=== PATIENT | male | born 2000 | race African-American/Black ===

== ENCOUNTER 2021-09-20 21:35 | Emergency (ER) | payer SELFPAY ==
[~2021-09-20] VITALS: Ht 172.7 cm; Wt 112.9 kg
[2021-09-20 21:48] VITALS: BP 161/93
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
== END 2021-09-20 22:07 ==
LOC: ER 21:35
DX: Z02.79 Encounter for issue of other medical certificate (principal); I10 Essential (primary) hypertension
CPT/HCPCS: 99283